=== PATIENT | female | born 1935 | race Caucasian/White ===

== ENCOUNTER 2025-10-17 18:51 | Inpatient (IN) | payer MEDICARE ==
[~2025-10-17] VITALS: Ht 165.1 cm; Wt 69.9 kg
[2025-10-17 21:04] LABS: MEAN PLATELET VOLUME 7.7 FL (7.4-10.4); RED CELL DISTRIBUTION WIDTH 14.3 % (11.5-14.5)
[2025-10-17 21:16] LABS: LEUKOCYTE ESTERASE ,URINE SMALL (Neg); NITRITES, URINE POSITIVE (Neg); OCCULT BLOOD,URINE TRACE-INTACT (Neg)
[2025-10-17 21:18] LABS: CREATININE 0.68 MG/DL (0.40-0.90); TOTAL CARBON DIOXIDE 28.3 MMOL/L (24-32); eCRCL 45 ML/MIN; eGFR 82 ML/MIN
[2025-10-17 21:22] LABS: UA COLLECTION TYPE CLN CATCH MIDSTREAM
[2025-10-17 21:26] LABS: AMORPHOUS PHOSPHATES 2+; SQUAMOUS EPITHELIAL CELL,UR MODERATE /LPF (FEW)
[2025-10-17 21:33] LABS: URINE AMPHETAMINE SCREEN NEGATIVE (Neg); URINE BARBITUATE SCREEN NEGATIVE (Neg); URINE BENZODIAZEPINES SCREEN NEGATIVE (Neg); URINE CANNABINOID SCREEN NEGATIVE (Neg); URINE COCAINE SCREEN NEGATIVE (Neg); URINE METHADONE SCREEN NEGATIVE (Neg); URINE OPIATE SCREEN NEGATIVE (Neg); URINE PHENCYCLIDINE SCREEN NEGATIVE (Neg)
[2025-10-17 21:36] LABS: ETHANOL < 10 MG/DL (<10)
--- NOTE | 2025-10-17 22:55 | Physician Documentation ---
History of Present Illness ~ Chief Complaint: Mental Health Eval Stated Complaint: MH/DEMENTIA Time Seen by MD: 19:14 Mode of Arrival: POV HPI 89-year-old female presents with acute onset of erratic behavior and altered mentation over several days, including disorientation, inability to answer questions appropriately, and unsafe driving behaviors. She was [place] by law enforcement on the [place] [address] after running out of gas, with multiple recent police contacts for confused driving. Her daughter reports no prior similar episodes and attempted to restrict her driving due to safety concerns. Past Medical History Smoking Status: Never smoker Review of Systems ROS As stated above in the HPI, otherwise all systems are reviewed and negative. Physical Exam Vital Signs: Temperature: 98.0, Heart Rate: 110, Respiratory Rate: 16, BP: 196/105, Pulse Oximetry: 98, Weight: 69.900 Oxygen Flow Rate: 0 Physical Exam VITALS: Reviewed and as above. GENERAL: Alert, no apparent distress. HEENT: Normocephalic, atraumatic, PERRL, EOMI, dry mucosa, no erythema RESPIRATORY: Lungs clear, normal breath sounds, no respiratory distress. 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 Ua W/Microscopic, Cult If Ind (10/17/25 21:00) Vital Signs 10/17/25 10/17/25 18:57 20:01 Temp 98.0 Pulse 110 Resp 18 16 B/P (MAP) 196/105 Pulse Ox 98 O2 Flow Rate 0 Laboratory Tests Test 10/17/25 20:50 10/17/25 21:00 White Blood Count 6.6 Red Blood Count 4.38 Hemoglobin 14.5 Hematocrit 41.9 Mean Corpuscular Volume 95.6 Mean Corpuscular Hemoglobin 33.0 H Mean Corpuscular Hemoglobin Concent 34.6 Red Cell Distribution Width 14.3 Platelet Count 392 Mean Platelet Volume 7.7 Neutrophils (%) (Auto) 65.2 Lymphocytes (%) (Auto) 22.3 Monocytes (%) (Auto) 10.5 Eosinophils (%) (Auto) 1.4 Basophils (%) (Auto) 0.6 Neutrophils # (Auto) 4.3 Lymphocytes # (Auto) 1.5 Monocytes # (Auto) 0.7 Eosinophils # (Auto) 0.1 Basophils # (Auto) 0.0 CBC Comment Sodium Level 139 Potassium Level 3.3 L Chloride Level 103 Carbon Dioxide Level 28.3 Anion Gap 8 Blood Urea Nitrogen 11 Creatinine 0.68 Estimated GFR/1.73 m2 82 BUN/Creatinine Ratio 16.2 Glucose Level 135 H Calcium Level 9.2 Total Bilirubin 0.4 Aspartate Amino Transf (AST/SGOT) 25 Alanine Aminotransferase (ALT/SGPT) 38 Alkaline Phosphatase 102 Total Protein 8.5 H Albumin 4.1 Globulin 4.4 H Albumin/Globulin Ratio 0.9 L Thyroid Stimulating Hormone (TSH) 3.98 Chemistry Comments Ethyl Alcohol Level < 10 Urine Specimen Description Cln catch midstream Urine Color Yellow Urine Clarity Slightly cloudy Urine pH 7.0 Urine Specific [place] 1.010 Urine Protein Negative Urine Glucose (UA) Negative Urine Ketones Negative Urine Occult Blood Trace-intact Urine Nitrite Positive H Urine Bilirubin Negative Urine Urobilinogen 0.2 Urine Leukocyte Esterase Small H Urine RBC 0-2 Urine WBC 5-10 H Urine Squamous Epithelial Cells Moderate Urine Transitional Epithelial Cells Few Urine Amorphous Phosphates 2+ Urine Bacteria 3+ Urine Culture Indicated Indicated Volume Urine Centrifuged 10 ml Urine Comment Urine Opiates Screen Negative Urine Methadone Screen Negative Urine Fentanyl Screen Negative Urine Barbiturates Screen Negative Urine Phencyclidine Screen Negative Urine Amphetamines Screen Negative Urine Benzodiazepines Screen Negative Urine Cocaine Screen Negative Urine Cannabinoids Screen Negative Drug Screen Comment Medical Decision Making Additional information obtaine: other Findings 89-year-old female presents with acute onset of erratic behavior and altered mentation over several days, including disorientation, inability to answer questions appropriately, and unsafe driving behaviors. She was [place] by law enforcement on the [place] [address] after running out of gas, with multiple recent police contacts for confused driving. Her daughter reports no prior similar episodes and attempted to restrict her driving due to safety concerns. Assessment: The patient exhibits an acute change in mental status, consistent with delirium. Delirium in older adults is a medical emergency and warrants prompt evaluation for reversible causes. The history is notable for fluctuating cognition, inattention, and disorganized thinking, with collateral information from her daughter confirming a clear deviation from baseline. Physical exam and initial workup in the ED revealed a significant urinary tract infection, a common precipitant of delirium in this population. Differential diagnosis: Delirium secondary to infection (UTI) Medication effect or intoxication (polypharmacy, new medications, substance use) Metabolic derangement (electrolyte imbalance, dehydration) OUTSOLE COMPRESSOR pathology (stroke, seizure, intracranial process) Dementia (baseline cognitive status unclear, but acute change favors delirium) Workup and management: Comprehensive history and physical, including collateral from family. Laboratory evaluation: CBC, electrolytes, renal function, urinalysis, urine culture, blood cultures as indicated Imaging: Consider chest radiograph, ECG, and neuroimaging if focal neurologic findings or trauma suspected Medication review for potential contributors Delirium screening using validated tools (e.g., Confusion Assessment Method) Assessment for other risk factors: sensory impairment, dehydration, severe i llness, baseline cognitive impairment Management plan: Treat underlying UTI with appropriate antibiotics, considering renal function and potential drug interactions in the elderly. Supportive care: hydration, nutrition, pain control, frequent reorientation, minimize environmental stressors. Avoid high-risk medications and physical restraints unless absolutely necessary for safety. Monitor for complications and reassess delirium status regularly. Involve family in care and provide education regarding delirium and safety. Disposition: Admission for further evaluation and management of delirium and UTI, with close monitoring for clinical deterioration and ongoing assessment of cognitive status. Multidisciplinary approach including geriatrics, nursing, and social work as appropriate. Prognosis: Delirium is associated with increased morbidity and mortality in older adults; early identification and treatment of reversible causes are critical to improving outcomes. Differential Dx:Considerations: Include: Alcohol abuse, Anxiety, Bipolar disorder, Conversion disorder, Depression, Encephaloathy, Homicidal, Panic disorder, Personality disorder, Schizophrenia, Substance abuse, Suicidal, Other Departure Disposition: 30 STILL A PATIENT Admitted to Inpatient Unit: to hospitalist Admission Level of Care: Med/Surg Impression: Primary Impression: Metabolic encephalopathy Additional Impression: Urinary tract infection Condition: Stable Referrals: NO PRIMARY CARE PROVIDER (PCP) Education Educated: Patient Educated regarding: diagnosis, treatment, need for follow up Signature Scribe Signature: A Attestation: Scribed for Aleida Dawn by BLAYNE Mistry . 10/17/25 23:52 ALEIDA DAWNP Oct 17, 2025 22:55
--- NOTE | 2025-10-17 22:55 | Physician Documentation ---
History of Present Illness ~ Chief Complaint: Mental Health Eval Stated Complaint: MH/DEMENTIA Time Seen by MD: 19:14 Mode of Arrival: POV HPI 89-year-old female presents with acute onset of erratic behavior and altered mentation over several days, including disorientation, inability to answer questions appropriately, and unsafe driving behaviors. She was [place] by law enforcement [place] the [place] [address] after running out of gas, with multiple recent police contacts for confused driving. Her daughter reports no prior similar episodes and attempted to restrict her driving due to safety concerns. Past Medical History Smoking Status: Never smoker Review of Systems ROS As stated above in the HPI, otherwise all systems are reviewed and negative. Physical Exam Vital Signs: Temperature: 98.0, Heart Rate: 110, Respiratory Rate: 16, BP: 196/105, Pulse Oximetry: 98, Weight: 69.900 Oxygen Flow Rate: 0 Physical Exam VITALS: Reviewed and as above. GENERAL: Alert, no apparent distress. HEENT: Normocephalic, atraumatic, PERRL, EOMI, dry mucosa, no erythema RESPIRATORY: Lungs clear, normal breath sounds, no respiratory distress. CHEST: No accessory muscle use, no retractions CV: Regular rate, rhythm, no edema, no murmur, No: JVD GI: Soft, non-tender, bowels sounds present, no rebound, guarding, or rigidity BACK: No CVA tenderness, or swelling MUSCULOSKELETAL No deformities, no edema SKIN: Warm and dry, no rash NEURO: Oriented x4, No motor or sensory deficit PSYCH: Normal mood and affect, no agitation Progress Results/Orders Results/Orders Orders - RALEIGH DAWN Cult Urine + [place] Ct (10/17/25 21:26) Completed Orders - RALEIGH DAWN RUNNER WORKER Ua W/Microscopic, Cult If Ind (10/17/25 21:00) Vital Signs 10/17/25 10/17/25 18:57 20:01 Temp 98.0 Pulse 110 Resp 18 16 B/P (MAP) 196/105 Pulse Ox 98 O2 Flow Rate 0 Laboratory Tests Test 10/17/25 20:50 10/17/25 21:00 White Blood Count 6.6 Red Blood Count 4.38 Hemoglobin 14.5 Hematocrit 41.9 Mean Corpuscular Volume 95.6 Mean Corpuscular Hemoglobin 33.0 H Mean Corpuscular Hemoglobin Concent 34.6 Red Cell Distribution Width 14.3 Platelet Count 392 Mean Platelet Volume 7.7 Neutrophils (%) (Auto) 65.2 Lymphocytes (%) (Auto) 22.3 Monocytes (%) (Auto) 10.5 Eosinophils (%) (Auto) 1.4 Basophils (%) (Auto) 0.6 Neutrophils # (Auto) 4.3 Lymphocytes # (Auto) 1.5 Monocytes # (Auto) 0.7 Eosinophils # (Auto) 0.1 Basophils # (Auto) 0.0 CBC Comment Sodium Level 139 Potassium Level 3.3 L Chloride Level 103 Carbon Dioxide Level 28.3 Anion Gap 8 Blood Urea Nitrogen 11 Creatinine 0.68 Estimated GFR/1.73 m2 82 BUN/Creatinine Ratio 16.2 Glucose Level 135 H Calcium Level 9.2 Total Bilirubin 0.4 Aspartate Amino Transf (AST/SGOT) 25 Alanine Aminotransferase (ALT/SGPT) 38 Alkaline Phosphatase 102 Total Protein 8.5 H Albumin 4.1 Globulin 4.4 H Albumin/Globulin Ratio 0.9 L Thyroid Stimulating Hormone (TSH) 3.98 Chemistry Comments Ethyl Alcohol Level < 10 Urine Specimen Description Cln catch midstream Urine Color Yellow Urine Clarity Slightly cloudy Urine pH 7.0 Urine Specific [place] 1.010 Urine Protein Negative Urine Glucose (UA) Negative Urine Ketones Negative Urine Occult Blood Trace-intact Urine Nitrite Positive H Urine Bilirubin Negative Urine Urobilinogen 0.2 Urine Leukocyte Esterase Small H Urine RBC 0-2 Urine WBC 5-10 H Urine Squamous Epithelial Cells Moderate Urine Transitional Epithelial Cells Few Urine Amorphous Phosphates 2+ Urine Bacteria 3+ Urine Culture Indicated Indicated Volume Urine Centrifuged 10 ml Urine Comment Urine Opiates Screen Negative Urine Methadone Screen Negative Urine Fentanyl Screen Negative Urine Barbiturates Screen Negative Urine Phencyclidine Screen Negative Urine Amphetamines Screen Negative Urine Benzodiazepines Screen Negative Urine Cocaine Screen Negative Urine Cannabinoids Screen Negative Drug Screen Comment Microbiology Date/Time Source Procedure Growth Status 10/17/25 21:26 Urine Clean Catch Midstream Urine Culture - Preliminary Culture received. Resulted Medical Decision Making Additional information obtaine: other Findings 89-year-old female presents with acute onset of erratic behavior and altered mentation over several days, including disorientation, inability to answer questions appropriately, and unsafe driving behaviors. She was [place] by law enforcement [place] the [place] [address] after running out of gas, with multiple recent police contacts for confused driving. Her daughter reports no prior sheryl lar episodes and attempted to restrict her driving due to safety concerns. Assessment: The patient exhibits an acute change in mental status, consistent with delirium. Delirium in older adults is a medical emergency and warrants prompt evaluation for reversible causes.[1-The history is notable for fluctuating cognition, inattention, and disorganized thinking, with collateral information from her daughter confirming a clear deviation from baseline. Physical exam and initial workup in the ED revealed a significant urinary tract infection, a common precipitant of delirium in this population. Differential diagnosis: Delirium secondary to infection (UTI) Medication effect or intoxication (polypharmacy, new medications, substance use) Metabolic derangement (electrolyte imbalance, dehydration) HOT DIP TINNING SUPERVISOR pathology (stroke, seizure, intracranial process) Dementia (baseline cognitive status unclear, but acute change favors delirium) Workup and management: Comprehensive history and physical, including collateral from family Laboratory evaluation: CBC, electrolytes, renal function, urinalysis, urine culture, blood cultures as indicated Imaging: Consider chest radiograph, ECG, and neuroimaging if focal neurologic findings or trauma suspected Medication review for potential contributors Delirium screening using validated tools (e.g., Confusion Assessment Method) Assessment for other risk factors: sensory impairment, dehydration, severe illness, baseline cognitive impairment Management plan: Treat underlying UTI with appropriate antibiotics, considering renal function and potential drug interactions in the elderly Supportive care: hydration, nutrition, pain control, frequent reorientation, minimize environmental stressors Avoid high-risk medications and physical restraints unless absolutely necessary for safety Monitor for complications and reassess delirium status regularly Involve family in care and provide education regarding delirium and safety Disposition: Admission for further evaluation and management of delirium and UTI, with close monitoring for clinical deterioration and ongoing assessment of cognitive status. Multidisciplinary approach including geriatrics, nursing, and social work as appropriate. Prognosis: Delirium is associated with increased morbidity and mortality in older adults; early identification and treatment of reversible causes are critical to impro ving outcomes. Differential Dx:Considerations: Include: Alcohol abuse, Anxiety, Bipolar disorder, Conversion disorder, Depression, Encephaloathy, Homicidal, Panic disorder, Personality disorder, Schizophrenia, Substance abuse, Suicidal, Other Departure Referrals: NO PRIMARY CARE PROVIDER (PCP) RALEIGH DAWN Oct 17, 2025 22:55
[2025-10-17] MEDS ORDERED: potassium Cl 20 mEq SR tablet PO PRN (23:10)
[2025-10-17] MEDS ORDERED: magnesium hydroxide 30ml (MOM) UD suspension PO PRN (23:10)
[2025-10-17] MEDS ORDERED: potassium Cl 40MEQ/1/2NS 520ml 520 ML IV PRN (23:10)
[2025-10-17] MEDS ORDERED: ondansetron/PF 4mg/2ml inj IV PRN (23:10)
[2025-10-17] MEDS: normal saline 1000ml 1,000 ML IV SCH (23:10)
[2025-10-17] MEDS ORDERED: magnesium Cl slow-release 64mg tablet PO PRN (23:10)
[2025-10-17] MEDS ORDERED: magnesium sulf-water 2g/50mL 50 ML IV PRN (23:10)
[2025-10-17] MEDS ORDERED: magnesium sulf-water 4G/100mL 100 ML IV PRN (23:10)
[2025-10-17] MEDS ORDERED: mag hydrox/Alum hydrox/simeth 30ml oral suspension PO PRN (23:10)
--- NOTE | 2025-10-17 23:26 | HISTORY AND PHYSICAL-Residence ---
History & Physical Providers to CC Resident Creating Document: JULES RUFFIN RES ~ History of Present Illness Reason for Admit\Complaint: UTI/confusion History of Present Illness The 89-year-old female with no known past medical history was brought into the ER by her daughter with a chief concern of a erratic behavior and confusion. Daughter was not there at the bedside when I went to evaluate the patient and phone call was not answered and it went voicemail. Per the ER provider, patient was found to not follow traffic rules and also mentioned that daughter hours concerned about the patient being aggressive in the last few days. Patient does not appear to be in any acute distress. She gets distracted as she talks and denies any chest pain, shortness of breath, nausea or vomiting, abdominal pain, constipation or diarrhea, dysuria. Mentioned that she has low back pain and she had a back surgery in the past. Also complains of left knee pain which is chronic and stated that she had a left knee surgery in the past. Walks using a cane. Mentioned that her last fall was about six years back. Denies any complaints and thinks that she can live by herself and wants to go back home. Agreed to stay back in the hospital for IV antibiotics, IV fluids and discussion with the daughter and social media senior associate in a.m.. Denied taking any medications at home. Allergies: Coded Allergies: No Known Allergies (Unverified , 10/17/25) Past Medical History Past Medical History Denies any past medical history Past Surgical History Surgical History Comment Back surgery, right wrist surgery, left knee surgery Past Social History Social History Comment Denies smoking tobacco, drinking alcohol or abusing any other recreational drugs. Lives by herself with a dog ROS ROS Constitutional: No fever, chills, dizziness, weakness, weight gain or loss Eyes: No pain, erythema, discharge, blurring of vision ENT: No sore throat, epistaxis, tinnitus Cardiovascular: No chest pain, chest pressure, chest discomfort, palpitations, syncope, lower extremity edema, paroxysmal nocturnal dyspnea Respiratory: No shortness of breath, cough, hemoptysis Gastrointestinal: Normal appetite. No nausea, vomiting, diarrhea, constipation, hematemesis, abdominal pain, bloating, melena or fresh blood Genitourinary: No frequency, urgency, nocturia, hematuria or dysuria Musculoskeletal: Chronic left knee pain, back pain present. No myalgias Integumentary: No change in skin, hair, nails. No swelling, bruising, abrasions Neurologic: No headache, neck pain, numbness or tingling of the extremities, weakness Psychiatric: No delusions, depression, loss of interest in normal activity or change in sleep pattern, hallucinations, suicidal ideations Endocrine: No fatigue, weakness, polydipsia, polyuria, change in appetite, heat or cold intolerance, sweating, dry skin Hematological: No bleeding, petechiae, bruising Allergies: No asthma or urticaria Exam Vitals: Vital Signs Date Time Temp Pulse Resp B/P (MAP) Pulse Ox O2 Delivery O2 Flow Rate FiO2 10/17/25 20:01 16 10/17/25 18:57 98.0 110 196/105 98 0 General: Awake and alert and oriented to place and person. Not oriented to time, day, month and year. GCS 15 HEENT: Normocephalic and atraumatic. Pupils equal round reactive to light and accommodation. Extraocular movements intact. Oral and nasal mucosa moist Neck: Trachea is in midline. No masses or JVD Chest: Bilateral normal breath sounds. No crackles, rhonchi or wheezes Cardiovascular: Regular rate and rhythm. S1-S2 normal. No rubs. Grade 2/6 ejection systolic murmur in the aortic area and holosystolic murmur in the mitral and tricuspid area Abdomen: Soft, nontender nondistended. Bowel sounds present Extremities: No cyanosis, clubbing or edema Central Nervous System: No gross sensory or motor deficits Musculoskeletal: No spinal or paraspinal tenderness Skin: Warm and dry Diagnostic Data Last Recorded Lab Results: 10/18/2522610/18/25226 Advance Care Planning Advanced Care plannin - 30 Minutes Additional Plan Acute metabolic encephalopathy likely to sepsis Possible underlying dementia Not in sepsis WBC within normal limits Urinalysis showed slightly cloudy urine, pH seven, positive nitrite, small leukocyte esterase, 5-10 WBC, 3+ bacteria Urine culture and blood culture ordered Chest x-ray did not show any acute cardiopulmonary abnormality. Mild spinal scoliotic curvature present Started Rocephin 2 g IV daily and normal saline 100 cc/hour Head CT ordered U tox negative, ammonia level ordered Procalcitonin and lactic acid level ordered EKG showed sinus rhythm, narrow QRS, no significant ST or T-wave changes, Q- waves in leads V1 and V2, prolonged WA interval but no QRS drop TSH within normal limits Director Life Sales consult requested to evaluate her home status Recommend talking to the daughter in a.m. to know patient's baseline First-degree AV block Asymptomatic EKG showed EKG showed sinus rhythm, narrow QRS, no significant ST or T-wave changes, Q-waves in leads V1 and V2, prolonged WA interval but no QRS drop MRSA aortic, mitral and tricuspid area Echocardiogram and troponin ordered Hypokalemia Continue replacement as per protocol Prediabetes HbA1c 6.4 Continue glucose level check q.4h Chronic back pain Continue Tylenol as needed Avoided opioids to prevent worsening of confusion DVT prophylaxis: Lovenox 40 mg subcutaneous daily Diet: Regular diet. Consider low carb diet if glucose levels trended up Jules Ruffin MD Internal Medicine Resident, PGY 3 Date of Service: Oct 18, 2025 Billing Provider: SHREYA CRAFT MD Addendum agree with resident UTI /AMS workup IM 3 JULES RUFFIN RES Oct 17, 2025 23:26 SHREYA CRAFT MD Oct 18, 2025 03:46
--- NOTE | 2025-10-17 23:28 | ELECTROCARDIOGRAPH REPORT ---
[facility] Test Date: 2025-10-17 Test Time: 23:26:04 Pat Name: VERONICA CARMONA Department: [facility] Patient ID: [id number] Room: ORTHO [facility] Gender: F Youth Development Professional: TONY : 1935 Requested By: JULES RUFFIN Order Number: [id number] Reading MD: Dr. ANKITA Colon Measurements Intervals [place] Rate: 75 P: 30 TN: 250 QRS: 15 QRSD: 82 T: 71 QT: 400 QTc: 447 Interpretive Statements Sinus rhythm Prolonged TN interval Anteroseptal infarct, old Electronically Signed On 10-18-2025 12:58:[address] ANKITA Colon Please click the below link to view image of tracing.
--- NOTE | 2025-10-18 00:33 | RADIOLOGY REPORT ---
CHEST RADIOGRAPH Indication: rule out pneumonia/rib fractures Technique: 1 view Comparison: None FINDINGS: Lines and Tubes: None. Lungs/Pleura: No focal consolidation, pleural effusion or pneumothorax. Cardiomediastinum: Unremarkable. Other: No displaced rib fracture or other acute osseous abnormality. Mild spinal scoliotic curvature. IMPRESSION: No acute cardiopulmonary abnormality or evidence of rib fracture.
[2025-10-18] MEDS: CefTRIAXone 2gm/D5W 50ml BAG 50 ML IV SCH (00:59)
[2025-10-18 02:59] LABS: MEAN PLATELET VOLUME 7.9 FL (7.4-10.4); RED CELL DISTRIBUTION WIDTH 14.0 % (11.5-14.5)
[2025-10-18 03:09] LABS: APTT 29 SECONDS (22-32); INR 1.2 INR
[2025-10-18] MEDS ORDERED: NO HOME MEDS (03:17)
[2025-10-18 03:18] LABS: CHOL/HDL RATIO 6.7 (0.00-4.99); CREATININE 0.74 MG/DL (0.40-0.90); LDL CHOLESTEROL 170 MG/DL (50-100); PHOSPHORUS 3.5 MG/DL (2.3-4.5); TOTAL CARBON DIOXIDE 27.9 MMOL/L (24-32); eCRCL 42 ML/MIN; eGFR 74 ML/MIN
--- NOTE | 2025-10-18 06:57 | RADIOLOGY REPORT ---
EXAM: CT CT HEAD INDICATION: Confused. TECHNIQUE: CT of the head without intravenous contrast. Coronal and sagittal reformatted images are submitted. Radiation Dose : 1. Head: CT Dose: CTDI volume is 50.9 mGy. Dose-length product is 906.4 mGy*cm The dose indicators for CT are the volume Computed Tomography (CT) Dose Index (CTDIvol) and the Dose Length Product (DLP), and are measured in units of mGy and mGy-cm, respectively. These indicators are not patient dose, but values generated from the CT scanner acquisition factors. The report includes radiation exposure data for exposures received during this examination. All CT scans at this medical facility are performed using dose modulation techniques as appropriate to a performed exam including the following: Automated exposure control was utilized; adjustment of the MA and/or KV according to patient size; and use of iterative reconstruction technique. COMPARISON: None FINDINGS: There is no evidence of acute intracranial hemorrhage, extra-axial collection, mass effect, midline shift, herniation or hydrocephalus. There is encephalomalacia in the right frontal lobe. There are periventricular and subcortical hypodensities, nonspecific, but likely reflecting sequelae of chronic microvascular ischemic changes. Please note that limits evaluation for acute cortical infarcts. In particular, there is a hypodensity in the posterior left frontal lobe for which acute infarct can not be excluded. The ventricles, sulci and cisterns are age appropriate. The eldridge-white differentiation is intact. The visualized paranasal sinuses and mastoid air cells are clear. No depressed calvarial fracture. The surrounding soft tissues are unremarkable. IMPRESSION: 1. No evidence of acute intracranial hemorrhage. 2. Hypodensity in the posterior left frontal lobe, which may be related to old microvascular ischemic changes, although an acute cortical infarct cannot be excluded. There is additional sequelae of microvascular ischemic changes in periventricular and subcortical white matter. 3. If there is clinical concern for acute infarct, recommend further evaluation with MRI.
[2025-10-18 07:30] VITALS: BP 136/77; PULSE 83; RESP 17; TEMP 98; O2SAT 98
[2025-10-18] MEDS: K and/or MAG REPLACEMENT MC SCH (08:00)
[2025-10-18 10:00] VITALS: BP 128/74; PULSE 78; RESP 15; TEMP 97.8; O2SAT 99
[2025-10-18] MEDS: docusate sod 100mg capsule PO SCH (12:17)
[2025-10-18] MEDS: potassium Cl 20 mEq SR tablet PO PRN (12:18)
--- NOTE | 2025-10-18 17:38 | CARDIOLOGY REPORT ---
APPROVED REPORT EXAM: Comprehensive 2D, Doppler, and color-flow Echocardiogram. 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 281.9 cm/s AoV VTI 47.9 cm AO Peak GR. 31.8 mmHg AO Mean GR. 16 mmHg LVOT VTI 28.75 cm LVOT Peak Aguilar. 147.6 cm/s KALEB(VTI)/BSA 1.55 cm2/m2 KALEB (VTI) 1.55 cm2 AV DI 0.60 % Mitral Valve MV E Velocity 105.5 cm/s MV Peak Gr. 6 mmHg MV DECEL TIME 174 ms MV A Velocity 162.7 cm/s MV PHT 56 ms E/A Ratio 0.6 MVA (PHT) 3.93 cm2 MV VMax 121.4 cm/s TDI Medial E' P. V 9.84 cm/s E/Medial E' 10.7 Pulmonary Vein S1 Velocity 67.7 cm/s D2 Velocity 52.2 cm/s PVa Velocity 47.8 cm/s PVa Duration 136 msec LEFT VENTRICLE Hypovolemic LV with normal wall thickness. Overall systolic function is hyperdynamic. Resting LV gradient of 37 mmHg, only slightly increasing to 45 mmHg with Valsalva maneuver. Gradient likely due to hyperdynamic LV function. LVEF is 70-75%. RIGHT VENTRICLE RV size and function appear normal. ATRIA The left atrium size is normal. AORTIC VALVE Trileaflet AV appears moderately sclerotic with mild stenosis. KALEB: 1.55 cmsq; Pkv: 2.81 m/sec; Gradients: 32 / 16 mmHG. No insufficiency. MITRAL VALVE Mild MV annular calcification without stenosis. Trace regurgitation. TRICUSPID VALVE TV appears structurally normal with trace regurgitation. PULMONIC VALVE Normal PV without stenosis, physiologic insufficiency. GREAT VESSELS Aortic root is normal in size. PERICARDIUM Normal pericardium. No effusion. Other Information Study Quality: Adequate Conclusion Hypovolemic LV with normal wall thickness. Overall systolic function is hyperdynamic. Resting LV gradient of 37 mmHg, only slightly increasing to 45 mmHg with Valsalva maneuver. Gradient likely due to hyperdynamic LV function. LVEF is 70-75%. RV size and function appear normal. The left atrium size is normal. Trileaflet AV appears moderately sclerotic with mild stenosis. KALEB: 1.55 cmsq; Pkv: 2.81 m/sec; Gradients: 32 / 16 mmHG. No insufficiency. Mild MV annular calcification without stenosis. Trace regurgitation. TV appears structurally normal with trace regurgitation. Normal pericardium. No effusion.
--- NOTE | 2025-10-18 18:27 | PROGRESS NOTE ---
Daily Progress Note Providers to CC ~ Antibiotic Timeout Antibiotic Ordered?: Yes Subjective Patient was seen in presence of nursing staff Kim today. Patient denied any symptoms of acute UTI. She mentioned to me that he ran out of the gas unfortunately she parked her car Likely in the wrong area and police people took her wallet and rest of the belongings and brought her to the ER. patient is not confused during conversation she likes to talk a lot , honest but at the same time blunt in conversation. Patient does acknowledge that her back pain and knees are giving her problem in her family members are planning to send her to assisted living. She needs physical therapy evaluation before her discharge tomorrow. Objective Vital Signs Date Time Temp Pulse Resp B/P (MAP) Pulse Ox O2 Delivery O2 Flow Rate FiO2 10/18/25 10:00 97.8 78 15 128/74 (92) 99 Room Air 10/17/25 18:57 0 Result Diagram: 10/18/2522610/18/25226 General-patient not in any acute distress, alert awake , not ill-appearing, age- appropriate looks comfortable HEENT-atraumatic normocephalic, neck supple without elevated JVD, No lymphadenopathy bilaterally. Eyes-no icterus or pallor seen in eyes Chest-clear to auscultation bilaterally, breathing nonlabored no tachypnea, no wheezing, no crepitation, no crackles. Heart-S1-S2 normal, regular heart rate no murmur Abdomen bowel sounds positive on auscultation, soft nondistended nontender no guarding, no rigidity Skin no active skin rash Neurology-grossly intact, nonfocal alert awake Extremity- no pedal edema able to move all 4 extremities Psychiatry - patient is not confused or agitated cooperated during physical examination Coagulation Studies Laboratory Tests Test 10/18/25 02:27 Prothrombin Time 12.1 SECONDS (9.0-12.0) H INR International Normalized Ratio 1.2 INR Activated Partial Thromboplast Time 29 SECONDS (22-32) Coagulation Comments Problem\Assessment\Plan Acute metabolic encephalopathy - resolved Possible underlying dementia Not in sepsis WBC within normal limits Patient has asymptomatic bacteriuria in urine analysis Urine culture and blood culture so far negative on Rocephin 2 g IV daily and normal saline 100 cc/hour Head CT x-ray chest normal U tox negative, ammonia level ordered Procalcitonin and lactic acid level ordered EKG showed sinus rhythm, narrow QRS, no significant ST or T-wave changes, Q- waves in leads V1 and V2, prolonged NV interval but no QRS drop TSH within normal limits First-degree AV block Asymptomatic EKG showed EKG showed sinus rhythm, narrow QRS, no significant ST or T-wave changes, Q-waves in leads V1 and V2, prolonged NV interval but no QRS drop MRSA aortic, mitral and tricuspid area Echocardiogram and troponin done and results reviewed Hypokalemia will do replacement as per protocol Prediabetes HbA1c 6.4 Chronic back pain and knee pain Continue Tylenol as needed Avoided opioids to prevent worsening of confusion DVT prophylaxis: Lovenox 40 mg subcutaneous daily Patient's current condition is guarded we will continue to follow patient in AM . Date of Service: Oct 18, 2025 Billing Provider: RIOS FRANKS MD Common Visit Codes: [id number] INP/OBS CARE(HIGH) RIOS FRANKS MD Oct 18, 2025 18:27
[2025-10-18 20:00] VITALS: RESP 16; O2SAT 95
[2025-10-18] MEDS: enoxaparin 40mg/0.4ml syringe SQ SCH (20:53)
[2025-10-18 23:00] VITALS: BP 138/77; PULSE 85; RESP 18; TEMP 98.2; O2SAT 93
[2025-10-19 05:45] LABS: MEAN PLATELET VOLUME 8.1 FL (7.4-10.4); RED CELL DISTRIBUTION WIDTH 14.3 % (11.5-14.5)
[2025-10-19 05:56] LABS: APTT 31 SECONDS (22-32); INR 1.2 INR
[2025-10-19 06:00] VITALS: BP 149/75; PULSE 75; RESP 16; TEMP 97.6; O2SAT 97
[2025-10-19 06:04] LABS: CREATININE 0.66 MG/DL (0.40-0.90); PHOSPHORUS 3.6 MG/DL (2.3-4.5); TOTAL CARBON DIOXIDE 27.3 MMOL/L (24-32); eCRCL 53 ML/MIN; eGFR 85 ML/MIN
[2025-10-19 10:46] VITALS: BP 139/73; PULSE 85; RESP 14; TEMP 98; O2SAT 96
[2025-10-19 16:34] VITALS: BP 137/69; PULSE 86; RESP 14; TEMP 98.1; O2SAT 97
--- NOTE | 2025-10-19 18:38 | PROGRESS NOTE ---
Daily Progress Note Providers to CC ~ Antibiotic Timeout Antibiotic Ordered?: Yes Subjective Patient was seen in her room she was all dressed in her home clothes. She ambulated with a cane in her room and holding surrounding furniture for support. Physical therapy team evaluated the patient and recommended rehab even though patient walked 300 ft. Objective Vital Signs Date Time Temp Pulse Resp B/P (MAP) Pulse Ox O2 Delivery O2 Flow Rate FiO2 10/19/25 16:34 98.1 86 14 137/69 (91) 97 Room Air 10/17/25 18:57 0 Result Diagram: 10/19/25 0511 10/19/25 0511 General-patient not in any acute distress, alert awake , not ill-appearing, age- appropriate looks comfortable HEENT-atraumatic normocephalic, neck supple without elevated JVD, No lymphadenopathy bilaterally. Eyes-no icterus or pallor seen in eyes Chest-clear to auscultation bilaterally, breathing nonlabored no tachypnea, no wheezing, no crepitation, no crackles. Heart-S1-S2 normal, regular heart rate no murmur Abdomen bowel sounds positive on auscultation, soft nondistended nontender no guarding, no rigidity Skin no active skin rash Neurology-grossly intact, nonfocal alert awake Extremity- no pedal edema able to move all 4 extremities Psychiatry - patient is not confused or agitated cooperated during physical examination Coagulation Studies Laboratory Tests Test 10/19/25 05:11 Prothrombin Time 11.8 SECONDS (9.0-12.0) INR International Normalized Ratio 1.2 INR Activated Partial Thromboplast Time 31 SECONDS (22-32) Coagulation Comments Problem\Assessment\Plan Acute metabolic encephalopathy - resolved Possible underlying dementia Not in sepsis WBC within normal limits Patient has asymptomatic bacteriuria in urine analysis Urine culture and blood culture so far negative on Rocephin 2 g IV daily and normal saline 100 cc/hour Head CT x-ray chest normal U tox negative, ammonia level ordered Procalcitonin and lactic acid level ordered EKG showed sinus rhythm, narrow QRS, no significant ST or T-wave changes, Q- waves in leads V1 and V2, prolonged IA interval but no QRS drop TSH within normal limits First-degree AV block Asymptomatic EKG showed EKG showed sinus rhythm, narrow QRS, no significant ST or T-wave changes, Q-waves in leads V1 and V2, prolonged IA interval but no QRS drop MRSA aortic, mitral and tricuspid area Echocardiogram and troponin done and results reviewed Hypokalemia will do replacement as per protocol Prediabetes HbA1c 6.4 Chronic back pain and knee pain Continue Tylenol as needed Avoided opioids to prevent worsening of confusion Urine culture showed mixed bernabe currently on ceftriaxone for UTI DVT prophylaxis: Lovenox 40 mg subcutaneous daily Patient's current condition is guarded we will continue to follow patient in AM . Patient is clinically stable for discharge likely to home in AM . Date of Service: Oct 19, 2025 Billing Provider: RIOS FRANKS MD Common Visit Codes: [id number] INP/OBS CARE(HIGH) RIOS FRANKS MD Oct 19, 2025 18:38
[2025-10-19 20:00] VITALS: RESP 14; O2SAT 97
[2025-10-19 22:00] VITALS: BP 156/88; PULSE 100; RESP 14; TEMP 97.8; O2SAT 96
[2025-10-20 06:00] VITALS: BP 149/83; PULSE 77; RESP 14; TEMP 97.8; O2SAT 94
[2025-10-20 06:50] LABS: MEAN PLATELET VOLUME 8.3 FL (7.4-10.4); RED CELL DISTRIBUTION WIDTH 14.3 % (11.5-14.5)
[2025-10-20 07:02] LABS: APTT 29 SECONDS (22-32); INR 1.1 INR
[2025-10-20 07:31] LABS: CREATININE 0.58 MG/DL (0.40-0.90); PHOSPHORUS 4.0 MG/DL (2.3-4.5); TOTAL CARBON DIOXIDE 26.1 MMOL/L (24-32); eCRCL 60 ML/MIN; eGFR > 90 ML/MIN
[2025-10-20 08:00] VITALS: RESP 16; O2SAT 96
[2025-10-20] MEDS ORDERED: CefTRIAXone 2gm/D5W 50ml BAG 50 ML IV SCH (08:00)
[2025-10-20] MEDS: CefTRIAXone 2gm/D5W 50ml BAG 50 ML IV SCH (09:57)
[2025-10-20 10:00] VITALS: BP 125/61; PULSE 77; RESP 16; TEMP 98.7; O2SAT 96
[2025-10-20] MEDS ORDERED: ACET-1008 PO (10:17)
--- NOTE | 2025-10-20 18:09 | PROGRESS NOTE ---
Daily Progress Note Providers to CC ~ Antibiotic Timeout Antibiotic Ordered?: No Subjective Patient was discharged today but after discharge she was roaming around in the lobby here and there and there was nobody to pick her up. I am not sure that her daughter responded or not to the phone calls manager poker aware . we will work on discharge plan in a.m. Objective Vital Signs Date Time Temp Pulse Resp B/P (MAP) Pulse Ox O2 Delivery O2 Flow Rate FiO2 10/20/25 10:00 98.7 77 16 125/61 (82) 96 Room Air 10/17/25 18:57 0 Result Diagram: 10/20/25 0554 10/20/25 0554 General-patient not in any acute distress, alert awake , not ill-appearing, age- appropriate looks comfortable HEENT-atraumatic normocephalic, neck supple without elevated JVD, No lymphadenopathy bilaterally. Eyes-no icterus or pallor seen in eyes Chest-clear to auscultation bilaterally, breathing nonlabored no tachypnea, no wheezing, no crepitation, no crackles. Heart-S1-S2 normal, regular heart rate no murmur Abdomen bowel sounds positive on auscultation, soft nondistended nontender no guarding, no rigidity Skin no active skin rash Neurology-grossly intact, nonfocal alert awake Extremity- no pedal edema able to move all 4 extremities Psychiatry - patient is not confused or agitated cooperated during physical examination Coagulation Studies Laboratory Tests Test 10/20/25 05:54 Prothrombin Time 11.4 SECONDS (9.0-12.0) INR International Normalized Ratio 1.1 INR Activated Partial Thromboplast Time 29 SECONDS (22-32) Coagulation Comments Problem\Assessment\Plan Acute metabolic encephalopathy - resolved Possible underlying dementia Not in sepsis WBC within normal limits Patient has asymptomatic bacteriuria in urine analysis Urine culture and blood culture so far negative on Rocephin 2 g IV daily and normal saline 100 cc/hour Head CT x-ray chest normal U tox negative, ammonia level ordered Procalcitonin and lactic acid level ordered EKG showed sinus rhythm, narrow QRS, no significant ST or T-wave changes, Q- waves in leads V1 and V2, prolonged MS interval but no QRS drop TSH within normal limits First-degree AV block Asymptomatic EKG showed EKG showed sinus rhythm, narrow QRS, no significant ST or T-wave changes, Q-waves in leads V1 and V2, prolonged MS interval but no QRS drop MRSA aortic, mitral and tricuspid area Echocardiogram and troponin done and results reviewed Hypokalemia will do replacement as per protocol Prediabetes HbA1c 6.4 Chronic back pain and knee pain Continue Tylenol as needed Avoided opioids to prevent worsening of confusion Urine culture showed mixed bernabe currently on ceftriaxone for UTI DVT prophylaxis: Lovenox 40 mg subcutaneous daily Patient's current condition is guarded we will continue to follow patient in AM . Patient is clinically stable for discharge likely to home in AM . Date of Service: Oct 20, 2025 Billing Provider: RIOS FRANKS MD Common Visit Codes: [id number] INP/OBS CARE(HIGH) RIOS FRANKS MD Oct 20, 2025 18:09
[2025-10-20 18:30] VITALS: BP 153/83; PULSE 87; RESP 16; TEMP 97.9; O2SAT 100
[2025-10-20 22:00] VITALS: BP 137/77; PULSE 87; RESP 16; TEMP 98.2; O2SAT 96
[2025-10-21 06:00] VITALS: BP 134/69; PULSE 78; RESP 16; TEMP 98.2; O2SAT 97
[2025-10-21 09:37] VITALS: RESP 16; O2SAT 95
[2025-10-21 10:00] VITALS: BP 126/66; PULSE 89; RESP 16; TEMP 98.3; O2SAT 96
--- NOTE | 2025-10-21 15:35 | PROGRESS NOTE ---
Progress Note Dictate Providers to CC ~ Progress Note: HPI: Consulted due to acute suicidal ideation with verbalized plan to use a shot gun to shoot herself. Stated there was no need to live anymore. Has been further hospitalized in the context of grave disability. Currently homeless. Upset about losing her dog. Underlying dementia Etiology. States she left her dog with her son in law because she was traveling up to [place]. Very distressed by not being able to have her dog. States she was living with her son in law and daughter for two weeks. States she is upset that her daughter hasn't called her and is instead keeping her dog. States she has looked into a few places to go. Psychiatric History: patient denies history of psychiatric treatment. Hx of suicide attempts: denies Hx of self-harm: denies Hx of violence: denies Legal hx: denies Historical Psych Medications: denies Substances use history: Social history: Born in [facility], happy childhood, graduated high school, was for over 30 years, four children (two boys, two girls)- two older children , youngest son is a rock musician Today on Assessment: Per nursing staff she stated she was very unhappy with her life. States she is "exisisting" states she is "encapsulated where I don't want to be" States her burke ass son in law" has her dog named "Fancy" (12/03 marilouua and 12/03 [place])- has had her dog (around 4 years old). Easily tearful about the loss her emotional support dog. States she is depressed situationally- "they made my life a living hell" Psychiatric Medications prescribed: none Review of Psychiatric Symptoms: Mood: endorses feeling unhappy and depressed about her situation. Suicide/self-harm: when asked if she was feeling suicidal today she sated, "I got news for you if you are supposed to be trained in this people who are going to commit suicide dont usually gobble food" Sleep: adequate- states that since her dog her dog has slept with her and so all she cares about is getting her dog back Appetite: good- eating three meals Energy: adequate Anxiety: high Irritability: endorses Homicidal/Anger: anger towards her daughter. Hallucinations/Paranoia: denies, not present Trauma symptoms: denies Symptoms related to substance withdrawal: denies Mental Status Evaluation General Appearance: Disheveled dyed black hair, gold jewelry, black pants, red flannel top, Eye contact: consistent with social norms Demeanor: negativistic Orientation: to person, place, time, situation Speech: Appropriate rate/rhythm/volume Psychomotor Activity: within normal range Abnormal Body Movements: none observed Mood: angry Affect: Full range Suicidality: denies suicidal ideation Homicidally: denies Thought content: consistent with social norms Thought process: logical, linear Thought perceptions: no perceptual disorder noted Memory: impairment notable Attention: appear attentive Insight: fair Judgment: fair Medical History Cardiac HX: Denies TBI Hx: denies Seizure Hx: denies RACHEL Hx: denies - - Diagnoses 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 She reports distress related to the loss of her dog (currently residing with her daughter and son in law) and a stable living situation. She expresses frustration related to her lack of independence and capacity to attain her car and move forward with living independently. When asked about her suicidality she shared that when she is extremely upset she will say things that which reflect the degree of distress but denies that she has plan nor intent to kill herself. She reflected that her behavior including appetite and motivation to attain custody of her dog support her will to live and lack of suicidality. Attempted to coordinate care with daughter, this provider called and left a message. Based on history as well as SLUMs score today of 15/30, her behavior and difficulties with emotional regulation as well as lack of insight/engagement in appropriate discharge planning are likely attributable to underlying dementia etiology. - Safety risk: low risk of imminent self-harm, low risk of externalized violent behaviors Recommendations: Further Care coordination with daughter- Isreal [place] [phone] Spent approximately 60 minutes reviewing records and test results, assessing and treatment planning, completing care coordination and documenting the encounter. Discussed risks, including possible adverse effects, and benefits of treatment recommendations including no treatment. Voice recognition software may have been used to dictate this note. There may be errors due to use of such software. Reporting of serious errors is appreciated. Antibiotic Ordered?: No Objective Vitals Vital Signs Date Time Temp Pulse Resp B/P (MAP) Pulse Ox O2 Delivery O2 Flow Rate FiO2 10/21/25 10:00 98.3 89 16 126/66 (86) 96 Room Air 10/21/25 09:37 0.0 Lab Results: 10/20/25 0554 10/20/25 0554 Coagulation Studies Laboratory Tests Test 10/20/25 05:54 Prothrombin Time 11.4 SECONDS (9.0-12.0) INR International Normalized Ratio 1.1 INR Activated Partial Thromboplast Time 29 SECONDS (22-32) Coagulation Comments CODING VISIT-PSYCHIATRY Date of Service: Oct 21, 2025 Billing Provider: JERMAN SATPLES DNP Psych Common Visit Codes: CONSULT ONLY JERMAN STAPLES DNP Oct 21, 2025 15:35
--- NOTE | 2025-10-21 17:57 | PROGRESS NOTE ---
Daily Progress Note Providers to CC ~ Antibiotic Timeout Antibiotic Ordered?: Yes Subjective Patient was seen in presence of sitter today and it was discussed with her that the behavioral health team in [facility] we will evaluate her today and reason explained. Later today they called me from [facility] that they will not put the patient on 5150 hold patient does have mild cognitive and needs placement Objective Vital Signs Date Time Temp Pulse Resp B/P (MAP) Pulse Ox O2 Delivery O2 Flow Rate FiO2 10/21/25 10:00 98.3 89 16 126/66 (86) 96 Room Air 10/21/25 09:37 0.0 Result Diagram: 10/20/25 0554 10/20/25 0554 General-patient not in any acute distress, alert awake , not ill-appearing, age- appropriate looks comfortable HEENT-atraumatic normocephalic, neck supple without elevated JVD, No lymphadenopathy bilaterally. Eyes-no icterus or pallor seen in eyes Chest-clear to auscultation bilaterally, breathing nonlabored no tachypnea, no wheezing, no crepitation, no crackles. Heart-S1-S2 normal, regular heart rate no murmur Abdomen bowel sounds positive on auscultation, soft nondistended nontender no guarding, no rigidity Skin no active skin rash Neurology-grossly intact, nonfocal alert awake Extremity- no pedal edema able to move all 4 extremities Psychiatry - patient is not confused or agitated cooperated during physical examination Coagulation Studies Laboratory Tests Test 10/20/25 05:54 Prothrombin Time 11.4 SECONDS (9.0-12.0) INR International Normalized Ratio 1.1 INR Activated Partial Thromboplast Time 29 SECONDS (22-32) Coagulation Comments Problem\Assessment\Plan Acute metabolic encephalopathy - resolved Possible underlying dementia Not in sepsis WBC within normal limits Patient has asymptomatic bacteriuria in urine analysis Urine culture and blood culture so far negative stopped Rocephin 2 g IV daily and normal saline Head CT x-ray chest normal U tox negative, ammonia level ordered Procalcitonin and lactic acid level normal EKG showed sinus rhythm, narrow QRS, no significant ST or T-wave changes, Q- waves in leads V1 and V2, prolonged WI interval but no QRS drop TSH within normal limits First-degree AV block Asymptomatic EKG showed EKG showed sinus rhythm, narrow QRS, no significant ST or T-wave changes, Q-waves in leads V1 and V2, prolonged WI interval but no QRS drop MRSA aortic, mitral and tricuspid area Echocardiogram and troponin done and results reviewed Hypokalemia- resolved will do replacement as per protocol Prediabetes HbA1c 6.4 Chronic back pain and knee pain Continue Tylenol as needed Avoided opioids to prevent worsening of confusion Urine culture showed mixed bernabe , treated with ceftriaxone for UTI DVT prophylaxis: Lovenox 40 mg subcutaneous daily Patient's current condition is guarded we will continue to follow patient in AM . Patient is medically clear for discharge. Later today they called me from [facility] that they will not put the patient on 5150 hold patient does have mild cognitive and needs placement Date of Service: Oct 21, 2025 Billing Provider: RIOS FRANKS MD Common Visit Codes: [id number] INP/OBS CARE(HIGH) RIOS FRANKS MD Oct 21, 2025 17:57
[2025-10-21 18:30] VITALS: BP 138/65; PULSE 88; RESP 16; TEMP 97.8; O2SAT 95
[2025-10-21 20:00] VITALS: RESP 16; O2SAT 95
[2025-10-21] MEDS: haloperidol decanoate***LONG-ACTING*** 100mg/ml **IM only** inj. IM ONE (20:40)
[2025-10-21] MEDS: haloperidol lactate 5mg/ml inj IM ONE (20:55)
[2025-10-21 22:00] VITALS: BP 138/83; PULSE 101; RESP 17; TEMP 97.5; O2SAT 96
[2025-10-22 06:00] VITALS: BP 131/74; PULSE 73; RESP 14; TEMP 97.7; O2SAT 96
[2025-10-22 09:47] VITALS: BP 119/67; PULSE 86; RESP 18; TEMP 97.6; O2SAT 96
--- NOTE | 2025-10-22 13:17 | RADIOLOGY REPORT ---
EXAM: DI CHEST,SINGLE VIEW HISTORY: To rule out TB for placement clearance COMPARISON: DI CHEST,SINGLE VIEW on DOS: 10/18/25 TECHNIQUE: Portable upright AP view of the chest was performed. FINDINGS: No pneumothorax, consolidative infiltrates, or pulmonary edema. There is central peribronchial thickening. The heart is not enlarged. There is thoracic degenerative disc disease and scoliosis. IMPRESSION: 1. Reactive airways disease. 2. The lungs are otherwise clear. No plain film evidence of acute or chronic tuberculosis.
[2025-10-22 18:00] VITALS: BP 118/66; PULSE 81; RESP 15; TEMP 97.4; O2SAT 93
--- NOTE | 2025-10-22 19:12 | PROGRESS NOTE ---
Daily Progress Note Providers to CC ~ Antibiotic Timeout Antibiotic Ordered?: No Subjective Patient is seen in presence of sitter today. Patient looked comfortable allowed me to examine her. Patient is aware that test case developer is working on finding assisted living for her and they will most likely evaluate her on Saturday. Later today I noticed that patient got haloperidol 10 mg twice and lorazepam 1 mg.PLEASE MINIMIZE ALL SEDATIVE AND NARCOTIC MEDICATIONS FOR THIS PATIENT MUCH POSSIBLE UNLESS REALLY NEEDED Objective Vital Signs Date Time Temp Pulse Resp B/P (MAP) Pulse Ox O2 Delivery O2 Flow Rate FiO2 10/22/25 09:47 97.6 86 18 119/67 (84) 96 Room Air 10/21/25 20:00 1.5 Result Diagram: 10/20/25 0554 10/20/25 0554 General-patient not in any acute distress, alert awake , not ill-appearing, age- appropriate looks comfortable HEENT-atraumatic normocephalic, neck supple without elevated JVD, No lymphadenopathy bilaterally. Eyes-no icterus or pallor seen in eyes Chest-clear to auscultation bilaterally, breathing nonlabored no tachypnea, no wheezing, no crepitation, no crackles. Heart-S1-S2 normal, regular heart rate no murmur Abdomen bowel sounds positive on auscultation, soft nondistended nontender no guarding, no rigidity Skin no active skin rash Neurology-grossly intact, nonfocal alert awake Extremity- no pedal edema able to move all 4 extremities Psychiatry - patient is not confused or agitated cooperated during physical examination Coagulation Studies Laboratory Tests Test 10/20/25 05:54 Prothrombin Time 11.4 SECONDS (9.0-12.0) INR International Normalized Ratio 1.1 INR Activated Partial Thromboplast Time 29 SECONDS (22-32) Coagulation Comments Problem\Assessment\Plan Acute metabolic encephalopathy - resolved Possible underlying dementia Not in sepsis WBC within normal limits Patient has asymptomatic bacteriuria in urine analysis Urine culture and blood culture so far negative stopped Rocephin 2 g IV daily and normal saline Head CT x-ray chest normal U tox negative, ammonia level ordered Procalcitonin and lactic acid level normal EKG showed sinus rhythm, narrow QRS, no significant ST or T-wave changes, Q- waves in leads V1 and V2, prolonged MD interval but no QRS drop TSH within normal limits PLEASE MINIMIZE ALL SEDATIVE AND NARCOTIC MEDICATIONS FOR THIS PATIENT MUCH POSSIBLE UNLESS REALLY NEEDED First-degree AV block Asymptomatic EKG showed EKG showed sinus rhythm, narrow QRS, no significant ST or T-wave changes, Q-waves in leads V1 and V2, prolonged MD interval but no QRS drop MRSA aortic, mitral and tricuspid area Echocardiogram and troponin done and results reviewed Hypokalemia- resolved will do replacement as per protocol Prediabetes HbA1c 6.4 Chronic back pain and knee pain Continue Tylenol as needed Avoided opioids to prevent worsening of confusion Urine culture showed mixed bernabe , treated with ceftriaxone for UTI DVT prophylaxis: Lovenox 40 mg subcutaneous daily Patient's current condition is guarded we will continue to follow patient in AM . Patient is medically clear for discharge. Later today they called me from [facility] that they will not put the patient on 5150 hold patient does have mild cognitive and needs placement. PLEASE MINIMIZE ALL SEDATIVE AND NARCOTIC MEDICATIONS FOR THIS PATIENT MUCH POSSIBLE UNLESS REALLY NEEDED Date of Service: Oct 22, 2025 Billing Provider: RIOS FRANKS MD Common Visit Codes: [id number] INP/OBS CARE(MOD) RIOS FRANKS MD Oct 22, 2025 19:12
[2025-10-22 20:00] VITALS: RESP 12; O2SAT 95
[2025-10-22 22:00] VITALS: BP 125/64; PULSE 82; RESP 12; TEMP 98.3; O2SAT 95
[2025-10-23 06:00] VITALS: BP 138/71; PULSE 78; RESP 12; TEMP 97.6; O2SAT 97
[2025-10-23 10:00] VITALS: BP 120/60; PULSE 83; RESP 13; TEMP 97.6; O2SAT 96
[2025-10-23 18:00] VITALS: BP 124/85; PULSE 91; RESP 18; TEMP 98.2; O2SAT 96
--- NOTE | 2025-10-23 18:06 | PROGRESS NOTE ---
Daily Progress Note Providers to CC ~ Antibiotic Timeout Antibiotic Ordered?: No Subjective Patient was seen in presence of sitter she looked comfortable waiting to get into assisted living setting. Objective Vital Signs Date Time Temp Pulse Resp B/P (MAP) Pulse Ox O2 Delivery O2 Flow Rate FiO2 10/23/25 10:00 97.6 83 13 120/60 (80) 96 Room Air 10/23/25 07:40 0.0 Result Diagram: 10/20/2554 10/20/25 0554 General-patient not in any acute distress, alert awake , not ill-appearing, age- appropriate looks comfortable HEENT-atraumatic normocephalic, neck supple without elevated JVD, No lymphadenopathy bilaterally. Eyes-no icterus or pallor seen in eyes Chest-clear to auscultation bilaterally, breathing nonlabored no tachypnea, no wheezing, no crepitation, no crackles. Heart-S1-S2 normal, regular heart rate no murmur Abdomen bowel sounds positive on auscultation, soft nondistended nontender no guarding, no rigidity Skin no active skin rash Neurology-grossly intact, nonfocal alert awake , signs of mild dementia present Extremity- no pedal edema able to move all 4 extremities Psychiatry - patient is not confused or agitated cooperated during physical examination Coagulation Studies Laboratory Tests Test 10/20/25 05:54 Prothrombin Time 11.4 SECONDS (9.0-12.0) INR International Normalized Ratio 1.1 INR Activated Partial Thromboplast Time 29 SECONDS (22-32) Coagulation Comments Problem\Assessment\Plan Acute metabolic encephalopathy - resolved Possible underlying dementia Not in sepsis WBC within normal limits Patient has asymptomatic bacteriuria in urine analysis Urine culture and blood culture so far negative stopped Rocephin 2 g IV daily and normal saline Head CT x-ray chest normal U tox negative, ammonia level ordered Procalcitonin and lactic acid level normal EKG showed sinus rhythm, narrow QRS, no significant ST or T-wave changes, Q- waves in leads V1 and V2, prolonged [place] interval but no QRS drop TSH within normal limits PLEASE MINIMIZE ALL SEDATIVE AND NARCOTIC MEDICATIONS FOR THIS PATIENT MUCH POSSIBLE UNLESS REALLY NEEDED First-degree AV block Asymptomatic EKG showed EKG showed sinus rhythm, narrow QRS, no significant ST or T-wave changes, Q-waves in leads V1 and V2, prolonged NH interval but no QRS drop MRSA aortic, mitral and tricuspid area Echocardiogram and troponin done and results reviewed Hypokalemia- resolved will do replacement as per protocol Prediabetes HbA1c 6.4 Chronic back pain and knee pain Continue Tylenol as needed Avoided opioids to prevent worsening of confusion Urine culture showed mixed bernabe , treated with ceftriaxone for UTI DVT prophylaxis: Lovenox 40 mg subcutaneous daily Patient's current condition is guarded we will continue to follow patient in AM . Patient is medically clear for discharge. Later today they called me from [facility] that they will not put the patient on 5150 hold patient does have mild cognitive and needs placement. PLEASE MINIMIZE ALL SEDATIVE AND NARCOTIC MEDICATIONS FOR THIS PATIENT MUCH POSSIBLE UNLESS REALLY NEEDED Date of Service: Oct 23, 2025 Billing Provider: RIOS FRANKS MD Common Visit Codes: [id number] INP/OBS CARE(MOD) RIOS RFANKS MD Oct 23, 2025 18:06
[2025-10-23 20:00] VITALS: RESP 18; O2SAT 96
[2025-10-23 23:00] VITALS: BP 140/69; PULSE 90; RESP 12; TEMP 98; O2SAT 96
[2025-10-24 06:00] VITALS: BP 114/68; PULSE 72; RESP 12; TEMP 97.9; O2SAT 94
[2025-10-24 10:00] VITALS: BP 114/64; PULSE 81; RESP 15; TEMP 98.4; O2SAT 97
[2025-10-24 10:00] LABS: MEAN PLATELET VOLUME 8.0 FL (7.4-10.4); RED CELL DISTRIBUTION WIDTH 14.4 % (11.5-14.5)
[2025-10-24 10:09] LABS: CREATININE 0.68 MG/DL (0.40-0.90); TOTAL CARBON DIOXIDE 27.1 MMOL/L (24-32); eCRCL 51 ML/MIN; eGFR 82 ML/MIN
[2025-10-24 18:00] VITALS: BP 107/63; PULSE 80; RESP 13; TEMP 97.8; O2SAT 96
--- NOTE | 2025-10-24 18:59 | PROGRESS NOTE ---
Daily Progress Note Providers to CC ~ Antibiotic Timeout Antibiotic Ordered?: No Subjective Patient was seen in presence of sitter she looked comfortable waiting to get into assisted living setting. Objective Vital Signs Date Time Temp Pulse Resp B/P (MAP) Pulse Ox O2 Delivery O2 Flow Rate FiO2 10/24/25 10:00 98.4 81 15 114/64 (81) 97 Room Air 10/24/25 08:00 0.0 Result Diagram: 10/24/25 0941 10/24/25 0941 General-patient not in any acute distress, alert awake , not ill-appearing, age- appropriate looks comfortable HEENT-atraumatic normocephalic, neck supple without elevated JVD, No lymphadenopathy bilaterally. Eyes-no icterus or pallor seen in eyes Chest-clear to auscultation bilaterally, breathing nonlabored no tachypnea, no wheezing, no crepitation, no crackles. Heart-S1-S2 normal, regular heart rate no murmur Abdomen bowel sounds positive on auscultation, soft nondistended nontender no guarding, no rigidity Skin no active skin rash Neurology-grossly intact, nonfocal alert awake , signs of mild dementia present Extremity- no pedal edema able to move all 4 extremities Psychiatry - patient is not confused or agitated cooperated during physical examination Coagulation Studies Laboratory Tests Test 10/20/25 05:54 Prothrombin Time 11.4 SECONDS (9.0-12.0) INR International Normalized Ratio 1.1 INR Activated Partial Thromboplast Time 29 SECONDS (22-32) Coagulation Comments Problem\Assessment\Plan Acute metabolic encephalopathy - resolved Possible underlying dementia Not in sepsis WBC within normal limits Patient has asymptomatic bacteriuria in urine analysis Urine culture and blood culture so far negative stopped Rocephin 2 g IV daily and normal saline Head CT x-ray chest normal U tox negative, ammonia level ordered Procalcitonin and lactic acid level normal EKG showed sinus rhythm, narrow QRS, no significant ST or T-wave changes, Q- waves in leads V1 and V2, prolonged PA interval but no QRS drop TSH within normal limits PLEASE MINIMIZE ALL SEDATIVE AND NARCOTIC MEDICATIONS FOR THIS PATIENT MUCH POSSIBLE UNLESS REALLY NEEDED First-degree AV block Asymptomatic EKG showed EKG showed sinus rhythm, narrow QRS, no significant ST or T-wave changes, Q-waves in leads V1 and V2, prolonged PA interval but no QRS drop MRSA aortic, mitral and tricuspid area Echocardiogram and troponin done and results reviewed Hypokalemia- resolved will do replacement as per protocol Prediabetes HbA1c 6.4 Chronic back pain and knee pain Continue Tylenol as needed Avoided opioids to prevent worsening of confusion Urine culture showed mixed bernabe , treated with ceftriaxone for UTI DVT prophylaxis: Lovenox 40 mg subcutaneous daily Patient's current condition is guarded we will continue to follow patient in AM . Patient is medically clear for discharge. Later today they called me from [facility] that they will not put the patient on 5150 hold patient does have mild cognitive and needs placement. PLEASE MINIMIZE ALL SEDATIVE AND NARCOTIC MEDICATIONS FOR THIS PATIENT MUCH POSSIBLE UNLESS REALLY NEEDED Date of Service: Oct 24, 2025 Billing Provider: RIOS FRANKS MD Common Visit Codes: [id number] INP/OBS CARE(HIGH) RIOS FRANKS MD Oct 24, 2025 18:58
[2025-10-24 22:00] VITALS: BP 107/79; PULSE 89; RESP 16; TEMP 98; O2SAT 96
[2025-10-25 10:00] VITALS: BP 130/63; PULSE 83; RESP 15; TEMP 98.5; O2SAT 96
[2025-10-25 18:00] VITALS: BP 117/60; PULSE 82; RESP 18; TEMP 98.4; O2SAT 96
--- NOTE | 2025-10-25 19:11 | PROGRESS NOTE ---
Daily Progress Note Providers to CC ~ Antibiotic Timeout Antibiotic Ordered?: No Subjective Patient was seen in presence of sitter she looked comfortable waiting to get into assisted living setting. Objective Vital Signs Date Time Temp Pulse Resp B/P (MAP) Pulse Ox O2 Delivery O2 Flow Rate FiO2 10/25/25 10:00 98.5 83 15 130/63 (85) 96 Room Air 10/25/25 09:00 0.0 Result Diagram: 10/24/25 0941 10/24/25 0941 General-patient not in any acute distress, alert awake , not ill-appearing, age- appropriate looks comfortable HEENT-atraumatic normocephalic, neck supple without elevated JVD, No lymphadenopathy bilaterally. Eyes-no icterus or pallor seen in eyes Chest-clear to auscultation bilaterally, breathing nonlabored no tachypnea, no wheezing, no crepitation, no crackles. Heart-S1-S2 normal, regular heart rate no murmur Abdomen bowel sounds positive on auscultation, soft nondistended nontender no guarding, no rigidity Skin no active skin rash Neurology-grossly intact, nonfocal alert awake , signs of mild dementia present Extremity- no pedal edema able to move all 4 extremities Psychiatry - patient is not confused or agitated cooperated during physical examination Coagulation Studies Laboratory Tests Test 10/20/25 05:54 Prothrombin Time 11.4 SECONDS (9.0-12.0) INR International Normalized Ratio 1.1 INR Activated Partial Thromboplast Time 29 SECONDS (22-32) Coagulation Comments Problem\Assessment\Plan Acute metabolic encephalopathy - resolved Possible underlying dementia Not in sepsis WBC within normal limits Patient has asymptomatic bacteriuria in urine analysis Urine culture and blood culture so far negative stopped Rocephin 2 g IV daily and normal saline Head CT x-ray chest normal U tox negative, ammonia level ordered Procalcitonin and lactic acid level normal EKG showed sinus rhythm, narrow QRS, no significant ST or T-wave changes, Q- waves in leads V1 and V2, prolonged ND interval but no QRS drop TSH within normal limits PLEASE MINIMIZE ALL SEDATIVE AND NARCOTIC MEDICATIONS FOR THIS PATIENT MUCH POSSIBLE UNLESS REALLY NEEDED First-degree AV block Asymptomatic EKG showed EKG showed sinus rhythm, narrow QRS, no significant ST or T-wave changes, Q-waves in leads V1 and V2, prolonged ND interval but no QRS drop MRSA aortic, mitral and tricuspid area Echocardiogram and troponin done and results reviewed Hypokalemia- resolved will do replacement as per protocol Prediabetes HbA1c 6.4 Chronic back pain and knee pain Continue Tylenol as needed Avoided opioids to prevent worsening of confusion Urine culture showed mixed bernabe , treated with ceftriaxone for UTI DVT prophylaxis: Lovenox 40 mg subcutaneous daily Patient's current condition is guarded we will continue to follow patient in AM . Patient is medically clear for discharge. Later today they called me from [facility] that they will not put the patient on 5150 hold patient does have mild cognitive and needs placement. PLEASE MINIMIZE ALL SEDATIVE AND NARCOTIC MEDICATIONS FOR THIS PATIENT MUCH POSSIBLE UNLESS REALLY NEEDED Date of Service: Oct 25, 2025 Billing Provider: RIOS FRANKS MD Common Visit Codes: [id number] INP/OBS CARE(HIGH) RIOS FRANKS MD Oct 25, 2025 19:11
[2025-10-25 22:00] VITALS: BP 132/68; PULSE 86; RESP 16; TEMP 97.8; O2SAT 97
[2025-10-26 06:00] VITALS: BP 132/72; PULSE 73; RESP 14; TEMP 97.2; O2SAT 100
[2025-10-26 10:00] VITALS: BP 121/65; PULSE 79; RESP 16; TEMP 97.3; O2SAT 97
[2025-10-26 10:57] LABS: MEAN PLATELET VOLUME 8.1 FL (7.4-10.4); RED CELL DISTRIBUTION WIDTH 14.2 % (11.5-14.5)
[2025-10-26 11:03] LABS: CREATININE 0.51 MG/DL (0.40-0.90); TOTAL CARBON DIOXIDE 29.8 MMOL/L (24-32); eCRCL 69 ML/MIN; eGFR > 90 ML/MIN
[2025-10-26 18:00] VITALS: BP 114/63; PULSE 79; RESP 16; TEMP 97.5; O2SAT 97
--- NOTE | 2025-10-26 18:42 | PROGRESS NOTE ---
Daily Progress Note Providers to CC ~ Antibiotic Timeout Antibiotic Ordered?: No Subjective Patient was seen in her room she looked comfortable waiting to get into assisted living setting. She is now well aware that her daughter needs to sign the documents as her POA for assisted living . Patient is encouraged to talk to her daughter. vessel manager trying to contact her daughter but unable to do so Objective Vital Signs Date Time Temp Pulse Resp B/P (MAP) Pulse Ox O2 Delivery O2 Flow Rate FiO2 10/26/25 10:00 97.3 79 16 121/65 (83) 97 Room Air 10/25/25 09:00 0.0 Result Diagram: 10/26/25 1010 10/26/25 1010 General-patient not in any acute distress, alert awake , not ill-appearing, age- appropriate looks comfortable HEENT-atraumatic normocephalic, neck supple without elevated JVD, No lymphadenopathy bilaterally. Eyes-no icterus or pallor seen in eyes Chest-clear to auscultation bilaterally, breathing nonlabored no tachypnea, no wheezing, no crepitation, no crackles. Heart-S1-S2 normal, regular heart rate no murmur Abdomen bowel sounds positive on auscultation, soft nondistended nontender no guarding, no rigidity Skin no active skin rash Neurology-grossly intact, nonfocal alert awake , signs of mild dementia present Extremity- no pedal edema able to move all 4 extremities Psychiatry - patient is not confused or agitated cooperated during physical examination Coagulation Studies Laboratory Tests Test 10/20/25 05:54 Prothrombin Time 11.4 SECONDS (9.0-12.0) INR International Normalized Ratio 1.1 INR Activated Partial Thromboplast Time 29 SECONDS (22-32) Coagulation Comments Problem\Assessment\Plan Acute metabolic encephalopathy - resolved Possible underlying dementia Not in sepsis WBC within normal limits Patient has asymptomatic bacteriuria in urine analysis Urine culture and blood culture so far negative stopped Rocephin 2 g IV daily and normal saline Head CT x-ray chest normal U tox negative, ammonia level ordered Procalcitonin and lactic acid level normal EKG showed sinus rhythm, narrow QRS, no significant ST or T-wave changes, Q- waves in leads V1 and V2, prolonged [place] interval but no QRS drop TSH within normal limits PLEASE MINIMIZE ALL SEDATIVE AND NARCOTIC MEDICATIONS FOR THIS PATIENT MUCH POSSIBLE UNLESS REALLY NEEDED First-degree AV block Asymptomatic EKG showed EKG showed sinus rhythm, narrow QRS, no significant ST or T-wave changes, Q-waves in leads V1 and V2, prolonged NJ interval but no QRS drop MRSA aortic, mitral and tricuspid area Echocardiogram and troponin done and results reviewed Hypokalemia- resolved will do replacement as per protocol Prediabetes HbA1c 6.4 Chronic back pain and knee pain Continue Tylenol as needed Avoided opioids to prevent worsening of confusion Urine culture showed mixed bernabe , treated with ceftriaxone for UTI DVT prophylaxis: Lovenox 40 mg subcutaneous daily Patient's current condition is guarded we will continue to follow patient in AM . Patient is medically clear for discharge. Later today they called me from [facility] that they will not put the patient on 5150 hold patient does have mild cognitive and needs placement. PLEASE MINIMIZE ALL SEDATIVE AND NARCOTIC MEDICATIONS FOR THIS PATIENT MUCH POSSIBLE UNLESS REALLY NEEDED Date of Service: Oct 26, 2025 Billing Provider: RIOS FRANKS MD Common Visit Codes: [id number] INP/OBS CARE(HIGH) RIOS FRANKS MD Oct 26, 2025 18:42
[2025-10-26 22:00] VITALS: BP 132/68; PULSE 79; RESP 16; TEMP 97.9; O2SAT 96
[2025-10-27 06:00] VITALS: BP 115/64; PULSE 63; RESP 15; TEMP 98.2; O2SAT 97
[2025-10-27 10:00] VITALS: BP 123/68; PULSE 80; RESP 16; TEMP 97.6; O2SAT 97
--- NOTE | 2025-10-27 16:23 | PROGRESS NOTE ---
Daily Progress Note Providers to CC ~ Antibiotic Timeout Antibiotic Ordered?: No Subjective Patient was seen in her room she looked comfortable waiting to get into assisted living setting. manager paper Mildred working on discharge plan and coordinating care plan her daughter. Objective Vital Signs Date Time Temp Pulse Resp B/P (MAP) Pulse Ox O2 Delivery O2 Flow Rate FiO2 10/27/25 10:00 97.6 80 16 123/68 (86) 97 Room Air 10/25/25 09:00 0.0 Result Diagram: 10/26/25 1010 10/26/25 1010 General-patient not in any acute distress, alert awake , not ill-appearing, age- appropriate looks comfortable HEENT-atraumatic normocephalic, neck supple without elevated JVD, No lymphadenopathy bilaterally. Eyes-no icterus or pallor seen in eyes Chest-clear to auscultation bilaterally, breathing nonlabored no tachypnea, no wheezing, no crepitation, no crackles. Heart-S1-S2 normal, regular heart rate no murmur Abdomen bowel sounds positive on auscultation, soft nondistended nontender no guarding, no rigidity Skin no active skin rash Neurology-grossly intact, nonfocal alert awake , signs of mild dementia present Extremity- no pedal edema able to move all 4 extremities Psychiatry - patient is not confused or agitated cooperated during physical examination Coagulation Studies Laboratory Tests Test 10/20/25 05:54 Prothrombin Time 11.4 SECONDS (9.0-12.0) INR International Normalized Ratio 1.1 INR Activated Partial Thromboplast Time 29 SECONDS (22-32) Coagulation Comments Problem\Assessment\Plan Acute metabolic encephalopathy - resolved Possible underlying dementia Not in sepsis WBC within normal limits Patient has asymptomatic bacteriuria in urine analysis Urine culture and blood culture so far negative stopped Rocephin 2 g IV daily and normal saline Head CT x-ray chest normal U tox negative, ammonia level ordered Procalcitonin and lactic acid level normal EKG showed sinus rhythm, narrow QRS, no significant ST or T-wave changes, Q- waves in leads V1 and V2, prolonged SC interval but no QRS drop TSH within normal limits PLEASE MINIMIZE ALL SEDATIVE AND NARCOTIC MEDICATIONS FOR THIS PATIENT MUCH POSSIBLE UNLESS REALLY NEEDED First-degree AV block Asymptomatic EKG showed EKG showed sinus rhythm, narrow QRS, no significant ST or T-wave changes, Q-waves in leads V1 and V2, prolonged SC interval but no QRS drop MRSA aortic, mitral and tricuspid area Echocardiogram and troponin done and results reviewed Hypokalemia- resolved will do replacement as per protocol Prediabetes HbA1c 6.4 Chronic back pain and knee pain Continue Tylenol as needed Avoided opioids to prevent worsening of confusion Urine culture showed mixed bernabe , treated with ceftriaxone for UTI DVT prophylaxis: Lovenox 40 mg subcutaneous daily Patient's current condition is guarded we will continue to follow patient in AM hospitalist team . she is waiting to get into assisted living setting. manager paper Mildred working on discharge plan and coordinating care plan her daughter. Date of Service: Oct 27, 2025 Billing Provider: RIOS FRANKS MD Common Visit Codes: [id number] INP/OBS CARE(MOD) RIOS FRANKS MD Oct 27, 2025 16:23
[2025-10-27 18:00] VITALS: BP 127/79; PULSE 86; RESP 18; TEMP 97.8; O2SAT 96
[2025-10-27 22:00] VITALS: BP 122/70; PULSE 85; RESP 14; TEMP 97.8; O2SAT 96
[2025-10-28 06:00] VITALS: BP 114/64; PULSE 70; RESP 15; TEMP 98; O2SAT 96
[2025-10-28 10:00] VITALS: BP 117/63; PULSE 78; RESP 16; TEMP 98; O2SAT 96
--- NOTE | 2025-10-28 10:02 | PROGRESS NOTE ---
Daily Progress Note Providers to CC ~ Antibiotic Timeout Antibiotic Ordered?: No Subjective Patient has no new complaints, Objective Vital Signs Date Time Temp Pulse Resp B/P (MAP) Pulse Ox O2 Delivery O2 Flow Rate FiO2 10/28/25 08:00 Room Air 10/28/25 06:00 98.0 70 15 114/64 (81) 96 10/25/25 09:00 0.0 Result Diagram: 10/26/25 1010 10/26/25 1010 Gen. awake alert oriented asymptomatic HEENT: Normocephalic, atraumatic, Pupils equal and reactive to light , extraocular movements are intact, sclera anicteric, conjunctiva pinkish, moist oral mucosa, no rash or ulcers. NECK: Supple, no JVD, trachea midline. CHEST: Clear to auscultation, no wheezes crackles or rhonchi. HEART: Regular rate rhythm, no murmur gallop or rub. ABDOMEN: Soft, nontender, no organomegaly. EXTREMITIES: No cyanosis clubbing or edema. NEURO EXAM: Grossly nonfocal. MUSCULOSKELETAL : No joint swelling or deformities. SKIN: No rash or ulcers noted. Coagulation Studies Laboratory Tests Test 10/20/25 05:54 Prothrombin Time 11.4 SECONDS (9.0-12.0) INR International Normalized Ratio 1.1 INR Activated Partial Thromboplast Time 29 SECONDS (22-32) Coagulation Comments Other Results Medications reviewed Problem\Assessment\Plan 89-year-old female with no known past medical history was brought into the ER by her daughter with a chief concern of a erratic behavior and confusion. Acute metabolic encephalopathy - resolved Possible underlying dementia Sepsis Ruled out WBC within normal limits Patient has asymptomatic bacteriuria in urine analysis Urine culture and blood culture so far negative Rocephin discontinued Head CT x-ray chest normal U tox negative, ammonia level ordered Procalcitonin and lactic acid level normal EKG showed sinus rhythm, narrow QRS, no significant ST or T-wave changes, Q- waves in leads V1 and V2, prolonged [place] interval but no QRS drop TSH within normal limits First-degree AV block Asymptomatic EKG showed EKG showed sinus rhythm, narrow QRS, no significant ST or T-wave changes, Q-waves in leads V1 and V2, prolonged WI interval but no QRS drop MRSA aortic, mitral and tricuspid area Echocardiogram and troponin done and results reviewed Hypokalemia- resolved Replace per protocol. Prediabetes HbA1c 6.4 Chronic back pain and knee pain Continue Tylenol as needed Avoided opioids to prevent worsening of confusion DVT prophylaxis: Lovenox 40 mg subcutaneous daily Disposition: Awaiting placement. Date of Service: Oct 28, 2025 Billing Provider: DWIGHT BARILLAS MD Common Visit Codes: [id number] INP/OBS CARE(MOD) DWIGHT BARILLAS MD Oct 28, 2025 10:02
[2025-10-28 18:00] VITALS: BP 124/73; PULSE 79; RESP 16; TEMP 98.5; O2SAT 97
[2025-10-28 18:30] VITALS: BP 124/73; PULSE 79; RESP 16; TEMP 98.5; O2SAT 97
[2025-10-28 20:00] VITALS: RESP 16; O2SAT 97
[2025-10-28 22:00] VITALS: BP 123/67; PULSE 97; RESP 14; TEMP 97.9; O2SAT 95
[2025-10-29 06:00] VITALS: BP 138/77; PULSE 74; RESP 16; TEMP 97.2; O2SAT 98
[2025-10-29 10:00] VITALS: BP 115/63; PULSE 71; RESP 14; TEMP 97.7; O2SAT 96
--- NOTE | 2025-10-29 13:42 | DISCHARGE SUMMARY ---
Discharge Summary Providers to CC ~ Discharge Summary Admission Diagnosis: UTI/Metabolic encephalopathy Hospital Course DATE OF ADMISSION: 10/17/2025 DATE OF DISCHARGE:10/29/2025 Discharge Diagnosis\Comment: Metabolic encephalopathy Dementia Operations\Procedures: Head CT Echocardiogram Consultants: None Complications: None Condition on DC: Stable Changed Medications: Acetaminophen (Tylenol) 325 Mg Tablet 1 TAB PO Q8H PRN for pain or fever for 10 Days, #30 TAB (Changed from: QDAY PRN; 30) Discontinued Medications: Home Med List (No Home Medications) Each Discharge Summary: Reason for admission: 89 years old female with no significant past medical history, has some dementia, brought over by her daughter for concern of erratic behavior and confusion. Please refer to admission H&P for further details Hospital course: Patient admitted on the monitored floor under hospital course as follows. #metabolic encephalopathy: Resolved. Likely due to underlying infection # sepsis ruled out # dementia with agitation: CT brain is negative. Patient has baseline mild dementia. We will need outpatient follow up with PCP and Neurology for further workup etc. Balance and first-degree AV block: EKGs showed sinus rhythm, no ST or T-wave changes. Echocardiogram showed LV ejection fraction of 70-75%. Aortic valve area 1.55 cm2. # code status: Patient was kept as a full code Discharge exam: Patient was seen ambulating with her walker in the hallway however quite agitated and pushed my foot with her walker. Appears in no acute distress. Asking for a checkbook that she has misplaced from the nursing staff. Disposition: To assisted living. *Problems/Diagnosis: (1) Metabolic encephalopathy Status: Acute (2) Urinary tract infection Status: Acute Total Time Spent on D/C: > 30 Minutes Date of Service: Oct 29, 2025 Billing Provider: DWIGHT BARILLAS MD Common Visit Codes: 04303-CLO/OBS DISCH DAY >30min DWIGHT BARILLAS MD Oct 29, 2025 13:40
== END 2025-10-29 13:35 | disposition home or self-care (01) | DRG 689 ==
LOC: ER 18:53 → ED HOLD 23:13 → ORTHO 4S 10-18 06:58 → UNDODISIN 10-20 13:56
PROVIDERS: ADMIT Internal Medicine Critical Care Medicine; ATTEND Internal Medicine
DX: N39.0 Urinary tract infection, site not specified (principal); G93.41 Metabolic encephalopathy; R45.851 Suicidal ideations; Z59.00 Homelessness unspecified; F03.A4 Unspecified dementia, mild, with anxiety; F32.A Depression, unspecified; F03.A3 Unspecified dementia, mild, with mood disturbance; Z20.822 Contact with and (suspected) exposure to COVID-19; E87.6 Hypokalemia; I44.0 Atrioventricular block, first degree; F43.22 Adjustment disorder with anxiety; R73.03 Prediabetes; G89.29 Other chronic pain
CPT/HCPCS: 36415; 70450; 71045; 80048; 80053; 80061; 80305; 80320; 81001; 82140; 82948; 83036; 83605; 83735; 84100; 84145; 84443; 84484; 85025; 85610; 85730; 87040; 87081; 87088; 87811; 93005; 93306; 97161; 97530; 99285; G0378; J0696; J1650; J7030